=== PATIENT | female | born 1935 | race Caucasian/White ===

== ENCOUNTER 2017-08-18 06:48 | Day surgery (SDC) | payer BC ==
[~2017-08-18] VITALS: Ht 157.5 cm; Wt 54.0 kg
[~2017-08-18 06:48] MED LIST: ASPI-231 PO; ATOR40TA52 PO; FURO20TA3 PO; LEVO112T4 PO; LISI-646 PO; POTA10TA51 PO; [UNRECOGNIZED DRUG - CODE] PO
[2017-08-18] MEDS ORDERED: LORA-654 GT (07:36)
[2017-08-18] MEDS ORDERED: VALS40TA2 PO (07:36)
[2017-08-18] MEDS ORDERED: CHOL20007 PO (07:36)
[2017-08-18] MEDS ORDERED: METH500T6 PO (07:36)
[2017-08-18] MEDS ORDERED: IBUP600T27 PO (07:38)
[2017-08-18] MEDS ORDERED: METO-158 PO (07:39)
[2017-08-18] MEDS ORDERED: SULF400T PO (07:42)
[2017-08-18] MEDS ORDERED: BECL80AE9 IN (07:43)
[2017-08-18] MEDS ORDERED: fentaNYL CITRATE 100 MCG/2 ML VL ONE (08:12)
[2017-08-18] MEDS ORDERED: NALOXONE HCL 0.4 MG/ML VIAL ONE (08:12)
[2017-08-18] MEDS ORDERED: FLUMAZENIL 0.1 MG/ML INJ 10ML MDV IV ONE (08:12)
[2017-08-18] MEDS ORDERED: MIDAZOLAM HCL 1MG/1ML-2 ML VIAL ONE (08:12)
[2017-08-18] MEDS ORDERED: LIDOCAINE VISCOUS 2% 15ML UD ONE (08:13)
== END 2017-08-18 10:40 | disposition home or self-care (01) ==
LOC: CATH 06:48
PROVIDERS: ATTEND Specialist
DX: I35.0 Nonrheumatic aortic (valve) stenosis (principal); I10 Essential (primary) hypertension; E78.5 Hyperlipidemia, unspecified; J43.9 Emphysema, unspecified; Z95.1 Presence of aortocoronary bypass graft; Z87.891 Personal history of nicotine dependence; Z79.899 Other long term (current) drug therapy; I67.1 Cerebral aneurysm, nonruptured
CPT/HCPCS: 93312; J2250; J3010; J7030; 99152

== ENCOUNTER 2021-12-03 18:44 | Inpatient (IN) | payer BC ==
[~2021-12-03] VITALS: Ht 157.5 cm; Wt 51.7 kg
[~2021-12-03 18:44] MED LIST changes: -ASPI-231 PO; +ASPI1TAB20 PO; +BECL80AE9 IN; +CHOL20007 PO; +HYDR-4607 PO; +IBUP600T27 PO; -LISI-646 PO; +LISI20TA28 PO; +LORA0.5T20 GT; +METH500T22 PO; +METO-158 PO; +SULF400T PO; +VALS40TA2 PO; -[UNRECOGNIZED DRUG - CODE] PO
[2021-12-03] MEDS ORDERED: MORPHINE SULFATE INJ 2 MG/ml SYRG IV PRN (20:45)
[2021-12-03] MEDS ORDERED: NITROGLYCERIN 0.4 MG SL TAB SL PRN (20:45)
[2021-12-03] MEDS ORDERED: ONDANSETRON HCL 4 MG/2 ML VIAL IV PRN (20:45)
[2021-12-04] VITALS (7 sets, daily range): BP systolic 102–128; BP diastolic 44–61
[2021-12-04 08:14] LABS: Basophils # (auto) 0 10 ^3/uL (0-0.2); Basophils % (auto) 0.4 % (0.0-2.0); Eosinophils # (auto) 0.1 10 ^3/uL (0-0.8); Eosinophils % (auto) 0.8 % (0.0-7.0); Hematocrit 41.2 % (36.0-46.0); Hemoglobin 13.6 g/dL (12.2-16.2); Lymphocytes # (auto) 0.5 10 ^3/uL (0.4-5.4); Lymphocytes % (auto) 4.5 % (10.0-50.0); Mean Corpuscular Volume 87.9 fL (80.0-100.0); Monocytes # (auto) 1.3 10 ^3/uL (0-1.3); Monocytes % (auto) 11.7 % (0.0-12.0); Neutrophils # (auto) 9.1 10 ^3/uL (1.6-8.6); Neutrophils % (auto) 82.6 % (37.0-80.0); Red Blood Cells 4.68 10^6/uL (4.0-5.20); Red Cell Distribution Width 15.9 % (11.8-14.3)
[2021-12-04 08:30] LABS: INR 0.97 (0.9-1.15)
[2021-12-04 08:55] LABS: Albumin 2.9 g/dL (3.4-5.0); Calcium 8.7 mg/dL (8.5-10.1); Potassium 3.7 mmol/L (3.5-5.1)
[2021-12-04 08:59] LABS: BUN/Creatinine Ratio 23.4; Bilirubin, Total 1.2 mg/dL (0.2-1.0); Total Protein 6.3 g/dL (6.4-8.2)
[2021-12-04] MEDS: HYDROmorphone HCL 2 MG/ML VL/or syr IV PRN ×2 (09:03→21:43)
[2021-12-04] MEDS ORDERED: CLOP75TA70 PO (09:21)
[2021-12-04] MEDS ORDERED: IPRA0.03 (09:21)
[2021-12-04] MEDS ORDERED: PANT40TA2 PO (09:21)
[2021-12-04] MEDS ORDERED: UMEC1AER IN (09:21)
[2021-12-04] MEDS ORDERED: ALBU1.257 IN (09:21)
[2021-12-04] MEDS ORDERED: [UNRECOGNIZED DRUG - CODE] GT (09:21)
[2021-12-04] MEDS ORDERED: CITA10TA70 PO (09:21)
[2021-12-04] MEDS ORDERED: DEXA4TAB PO (09:21)
[2021-12-04] MEDS ORDERED: ZOLP5TAB5 PO (09:23)
[2021-12-04 10:43] LABS: Urine Bacteria FEW /hpf (None Seen); Urine Blood 3+ /uL (Negative); Urine Mucus FEW (None Seen); Urine Specific Gravity 1.021 (1.001-1.035); Urine WBC 54 /hpf (0 - 5)
[2021-12-04] MEDS ORDERED: FLUT1AER17 IN (16:26)
[2021-12-04] MEDS ORDERED: ZOLPIDEM TARTRATE 5 MG TAB PO PRN (19:30)
[2021-12-04] MEDS ORDERED: LORazepam 0.5 MG TAB GT PRN (19:30)
[2021-12-04] MEDS ORDERED: IPRATROPIUM BROM 0.5 MG/2.5ML INH SOL NEB PRN (19:45)
[2021-12-04] MEDS ORDERED: ALBUTEROL SULF 2.5 MG/0.5ML(0.5%) NEB SOLN NEB PRN (19:45)
[2021-12-04] MEDS: DexAMETHasone 4 MG TAB PO SCH (21:43)
[2021-12-04] MEDS: METOPROLOL TARTRATE 50 MG TAB PO SCH (21:43)
[2021-12-04] MEDS ORDERED: HYDROcodone-ACET 5/325MG TAB PO PRN (22:00)
[2021-12-05] VITALS (14 sets, daily range): BP systolic 111–152; BP diastolic 43–76
[2021-12-05] MEDS ORDERED: METHOCARBAMOL 500 MG TAB PO SCH
[2021-12-05] MEDS: HYDROmorphone HCL 2 MG/ML VL/or syr IV PRN ×3 (01:53→22:20)
[2021-12-05] MEDS: LEVOTHYROXINE SODIUM 112 MCG TAB PO SCH (05:40)
[2021-12-05] MEDS ORDERED: MEPERIDINE HCL (25 MG/ML) 1ML VIAL ONE (07:19)
[2021-12-05] MEDS ORDERED: fentaNYL CITRATE 100 MCG/2 ML VL ONE (07:19)
[2021-12-05] MEDS ORDERED: MIDAZOLAM HCL 2MG/2ML 2ml VIAL (1mg/ml) ONE ×2 (07:19→07:55)
[2021-12-05] MEDS ORDERED: DexAMETHasone SOD PHOS 10MG/1ML VIAL INJ ONE (07:45)
[2021-12-05] MEDS ORDERED: LIDOCAINE 1%-Mpf/Epinephrine 1:200,000 ONE (07:45)
[2021-12-05] MEDS ORDERED: ROPIVACAINE 0.5% (5MG/ML) 20ML AMPULE IJ ONE (07:45)
[2021-12-05] MEDS ORDERED: PROPOFOL 10 MG/ML 20 ML IV ONE (07:46)
[2021-12-05] MEDS ORDERED: LABETALOL HCL 5 MG/ML 4ML SYRINGE IV PRN (09:00)
[2021-12-05] MEDS ORDERED: MORPHINE SULFATE 4 MG/ML SYR/VIAL IV PRN (09:00)
[2021-12-05] MEDS ORDERED: HYDROmorphone HCL 2 MG/ML VL/or syr IV PRN (09:00)
[2021-12-05] MEDS ORDERED: MIDAZOLAM HCL 2MG/2ML 2ml VIAL (1mg/ml) IV PRN (09:00)
[2021-12-05] MEDS ORDERED: ePHEDrine SULFATE 50 MG/ML AMP IV PRN (09:00)
[2021-12-05] MEDS ORDERED: ONDANSETRON HCL 4 MG/2 ML VIAL IV PRN (09:00)
[2021-12-05] MEDS: CITALOPRAM HYDROBR 20 MG TAB PO SCH (10:39)
[2021-12-05] MEDS: ASPirin-EC 81 mg tab PO SCH (10:39)
[2021-12-05] MEDS: DexAMETHasone 4 MG TAB PO SCH ×2 (10:40→22:19)
[2021-12-05] MEDS: PANTOPRAZOLE 40 MG TAB PO SCH (10:41)
[2021-12-05] MEDS: FUROSEMIDE 20 MG TAB PO SCH (10:42)
[2021-12-05] MEDS: CLOPIDOGREL BISULFATE 75 MG TAB PO SCH (10:42)
[2021-12-05] MEDS: POTASSIUM CHL 10 Meq TABLET PO SCH (10:42)
[2021-12-05] MEDS: ceFAZolin 1GM/50ML 50 ML IV SCH ×2 (12:30→17:33)
[2021-12-05] MEDS: ATORVASTATIN 20 MG TAB PO SCH (17:33)
[2021-12-05] MEDS: HYDROcodone-ACET 5/325MG TAB PO PRN (17:38)
[2021-12-05] MEDS: METOPROLOL TARTRATE 50 MG TAB PO SCH (22:19)
[2021-12-06] MEDS: ceFAZolin 1GM/50ML 50 ML IV SCH (01:30)
[2021-12-06 05:31] VITALS: BP 147/52
[2021-12-06] MEDS: LEVOTHYROXINE SODIUM 112 MCG TAB PO SCH (06:31)
[2021-12-06] MEDS: HYDROmorphone HCL 2 MG/ML VL/or syr IV PRN ×2 (07:06→17:32)
[2021-12-06 08:00] VITALS: BP 106/44
[2021-12-06] MEDS: DexAMETHasone 4 MG TAB PO SCH ×2 (09:53→22:05)
[2021-12-06] MEDS: ASPirin-EC 81 mg tab PO SCH (09:53)
[2021-12-06] MEDS: POTASSIUM CHL 10 Meq TABLET PO SCH (09:53)
[2021-12-06] MEDS: CITALOPRAM HYDROBR 20 MG TAB PO SCH (09:53)
[2021-12-06] MEDS: PANTOPRAZOLE 40 MG TAB PO SCH (09:54)
[2021-12-06] MEDS: FUROSEMIDE 20 MG TAB PO SCH (09:54)
[2021-12-06] MEDS: ENOXAPARIN SOD 40 MG/0.4 ML SYRINGE SC SCH (09:54)
[2021-12-06] MEDS: CLOPIDOGREL BISULFATE 75 MG TAB PO SCH (10:00)
[2021-12-06 12:00] VITALS: BP 127/49
[2021-12-06 16:00] VITALS: BP 113/74
[2021-12-06] MEDS: ATORVASTATIN 20 MG TAB PO SCH (17:32)
[2021-12-06 20:00] VITALS: BP 157/54
[2021-12-06 22:00] VITALS: BP 157/54
[2021-12-06] MEDS: METOPROLOL TARTRATE 50 MG TAB PO SCH (22:04)
[2021-12-07] VITALS (7 sets, daily range): BP systolic 121–148; BP diastolic 47–80
[2021-12-07] MEDS: HYDROmorphone HCL 2 MG/ML VL/or syr IV PRN ×4 (00:15→22:24)
[2021-12-07 05:23] LABS: Basophils # (auto) 0 10 ^3/uL (0-0.2); Basophils % (auto) 0.1 % (0.0-2.0); Eosinophils # (auto) 0 10 ^3/uL (0-0.8); Hemoglobin 11.8 g/dL (12.2-16.2); Lymphocytes # (auto) 0.3 10 ^3/uL (0.4-5.4); Lymphocytes % (auto) 3.1 % (10.0-50.0); Mean Corpuscular Hemoglobin 28.8 pg (28.0-32.0); Mean Corpuscular Hgb Conc. 32.9 g/dL (32.0-36.0); Mean Corpuscular Volume 87.5 fL (80.0-100.0); Monocytes # (auto) 0.9 10 ^3/uL (0-1.3); Monocytes % (auto) 8.6 % (0.0-12.0); Neutrophils # (auto) 8.9 10 ^3/uL (1.6-8.6); Neutrophils % (auto) 88.2 % (37.0-80.0); Red Blood Cells 4.11 10^6/uL (4.0-5.20); Red Cell Distribution Width 15.5 % (11.8-14.3); White Blood Cell 10.1 10^3/uL (4.4-10.8)
[2021-12-07 05:47] LABS: Calcium 8.5 mg/dL (8.5-10.1); Magnesium 1.8 mg/dL (1.6-2.6); Potassium 3.9 mmol/L (3.5-5.1)
[2021-12-07 05:49] LABS: BUN/Creatinine Ratio 49.3
[2021-12-07] MEDS: LEVOTHYROXINE SODIUM 112 MCG TAB PO SCH (06:14)
[2021-12-07] MEDS: ASPirin-EC 81 mg tab PO SCH (09:48)
[2021-12-07] MEDS: DexAMETHasone 4 MG TAB PO SCH ×2 (09:48→22:24)
[2021-12-07] MEDS: CITALOPRAM HYDROBR 20 MG TAB PO SCH (09:49)
[2021-12-07] MEDS: POTASSIUM CHL 10 Meq TABLET PO SCH (09:49)
[2021-12-07] MEDS: PANTOPRAZOLE 40 MG TAB PO SCH (09:49)
[2021-12-07] MEDS: ENOXAPARIN SOD 40 MG/0.4 ML SYRINGE SC SCH (09:49)
[2021-12-07] MEDS: HYDROcodone-ACET 5/325MG TAB PO PRN (09:50)
[2021-12-07] MEDS: FUROSEMIDE 20 MG TAB PO SCH (09:50)
[2021-12-07] MEDS: CLOPIDOGREL BISULFATE 75 MG TAB PO SCH (10:00)
[2021-12-07] MEDS: ATORVASTATIN 20 MG TAB PO SCH (17:45)
[2021-12-07] MEDS: METOPROLOL TARTRATE 50 MG TAB PO SCH (22:25)
[2021-12-08 02:40] VITALS: BP 147/57
[2021-12-08 05:00] VITALS: BP 139/42
[2021-12-08] MEDS: LEVOTHYROXINE SODIUM 112 MCG TAB PO SCH (06:28)
[2021-12-08 09:00] VITALS: BP 173/89
[2021-12-08] MEDS: HYDROmorphone HCL 2 MG/ML VL/or syr IV PRN (10:05)
[2021-12-08] MEDS: ASPirin-EC 81 mg tab PO SCH (10:07)
[2021-12-08] MEDS: CITALOPRAM HYDROBR 20 MG TAB PO SCH (10:07)
[2021-12-08] MEDS: DexAMETHasone 4 MG TAB PO SCH (10:07)
[2021-12-08] MEDS: POTASSIUM CHL 10 Meq TABLET PO SCH (10:07)
[2021-12-08] MEDS: PANTOPRAZOLE 40 MG TAB PO SCH (10:07)
[2021-12-08] MEDS: FUROSEMIDE 20 MG TAB PO SCH (10:07)
[2021-12-08] MEDS: ENOXAPARIN SOD 40 MG/0.4 ML SYRINGE SC SCH (10:07)
[2021-12-08] MEDS: CLOPIDOGREL BISULFATE 75 MG TAB PO SCH (10:07)
[2021-12-08 13:00] VITALS: BP 132/58
== END 2021-12-08 16:20 | DRG 480 ==
LOC: TELE 20:42 → TELE-CENTR 22:26
PROVIDERS: ADMIT Internal Medicine; ATTEND Internal Medicine
PROC: 0QS604Z Reposition Right Upper Femur with Internal Fixation Device, Open Approach (ICD-10-PCS; principal; 2021-12-05 07:26)
DX: S72.001A Fracture of unspecified part of neck of right femur, initial encounter for closed fracture (principal); J12.82 Pneumonia due to coronavirus disease 2019; U07.1 COVID-19; N39.0 Urinary tract infection, site not specified; E03.9 Hypothyroidism, unspecified; I10 Essential (primary) hypertension; W18.39XA Other fall on same level, initial encounter; E78.5 Hyperlipidemia, unspecified; I25.10 Atherosclerotic heart disease of native coronary artery without angina pectoris; J43.9 Emphysema, unspecified; Z79.02 Long term (current) use of antithrombotics/antiplatelets; Z79.82 Long term (current) use of aspirin; Y93.89 Activity, other specified; Y92.89 Other specified places as the place of occurrence of the external cause; Y99.8 Other external cause status; Z71.6 Tobacco abuse counseling; Z72.0 Tobacco use; Z79.899 Other long term (current) drug therapy; Z85.048 Personal history of other malignant neoplasm of rectum, rectosigmoid junction, and anus; Z95.1 Presence of aortocoronary bypass graft; Z95.2 Presence of prosthetic heart valve
CPT/HCPCS: 36415; 71045; 73502; 76000; 80048; 80053; 81001; 83735; 85025; 85610; 86850; 86900; 86901; 87081; 93005; 93306; 97110; 97116; 97163; 97530; G0378; J0690; J1100; J2250; J2704